=== PATIENT | male | born 1945 | race Caucasian/White ===

== ENCOUNTER 2022-07-08 15:31 | Emergency (ER) | payer MEDICARE, BC ==
[2022-07-08 15:59] VITALS: PULSE 60; RESP 18; TEMP 97.9
--- NOTE | 2022-07-08 16:54 | ED ---
General Adult HPI - General Chief complaint: Recheck/Abnormal Lab/Rx Stated complaint: post op infection Time Seen by Provider: 07/08/22 16:04 Source: patient, EMS, RN notes reviewed Mode of arrival: EMS Limitations: no limitations - History of Present Illness Initial comments: 76 year old male presents to the emergency department with a chief complaint of post op problem. [facility] who reports that there was purulent discharge "picking" at his incision site. Upon obtaining the history patient is only complaining of the c-collar being uncomfortable. He denies any other complaints. He denies any headache, fever, chills, chest pain, shortness of breath, abdominal pain, nausea, vomiting, diarrhea. Patient is a poor historian however has no specific complaints at this visit. - Related Data Previous Rx's Medication Instructions Recorded Cephalexin [Keflex] 500 mg PO Q6HR 14 Days #56 cap 07/08/22 Allergies Allergy/AdvReac Type Severity Reaction Status Date / Time cyclobenzaprine Allergy Unknown Verified 07/09/22 14:33 [From Flexeril] Review of Systems ROS Statement: Those systems with pertinent positive or pertinent negative responses have been documented in the HPI. ROS Other: All systems not noted in ROS Statement are negative. General Exam Limitations: no limitations General appearance: alert, in no apparent distress Head exam: Present: atraumatic, normocephalic, normal inspection Eye exam: Present: normal appearance, PERRL, EOMI. Absent: scleral icterus, conjunctival injection, periorbital swelling ENT exam: Present: normal exam, mucous membranes moist Neck exam: Present: normal inspection, other (Surgical site appears well-healed no active drainage there is no fluctuance). Absent: tenderness, meningismus, lymphadenopathy Respiratory exam: Present: normal lung sounds bilaterally. Absent: respiratory distress, wheezes, rales, rhonchi, stridor Cardiovascular Exam: Present: regular rate, normal rhythm, normal heart sounds. Absent: systolic murmur, diastolic murmur, rubs, gallop, clicks GI/Abdominal exam: Present: soft, normal bowel sounds. Absent: distended, tenderness, guarding, rebound, rigid Extremities exam: Present: normal inspection, full ROM, normal capillary refill. Absent: tenderness, pedal edema, joint swelling, calf tenderness Back exam: Present: normal inspection Neurological exam: Present: alert, oriented X3, CN II-XII intact Psychiatric exam: Present: normal affect, normal mood Skin exam: Present: warm, dry, intact, normal color. Absent: rash Course Vital Signs 07/08/22 07/08/22 15:56 17:59 Temperature 97.9 F Pulse Rate 60 60 Respiratory 18 18 Rate Blood Pressure 127/57 130/66 O2 Sat by Pulse 95 97 Oximetry - Reevaluation(s) Reevaluation #1: 07/08/22 17:[address] Larsen, who would like the patient to be placed on Keflex 500mg QID x 14 days and is stable to return to rehabilitation facility. He will follow up with the patient in his office next week. Medical Decision Making - Medical Decision Making Was pt. sent in by a medical professional or institution (, PA, AMUSEMENT OR RECREATION CARD CHECKER, urgent care, hospital, or prison...) When possible be specific @ -[No] Did you speak to anyone other than the patient for history (EMS, parent, family, police, friend...)? What history was obtained from this source @ -[No] Did you review nursing and triage notes (agree or disagree)? Why? @ -[I reviewed and agree with nursing and triage notes] Were old charts reviewed (outside hosp., previous admission, EMS record, old EKG, old radiological studies, urgent care reports/EKG's, prison records)? Report findings @ -[No old charts were reviewed] Differential Diagnosis (chest pain, altered mental status, abdominal pain women, abdominal pain men, vaginal bleeding, weakness, fever, dyspnea, syncope, headache, dizziness, GI bleed, back pain, seizure, CVA, palpatations, mental health)? @ -[not applicable] EKG interpreted by me (3pts min.). @ -[As above] X-rays interpreted by me (1pt min.). @ -[None done] CT interpreted by me (1pt min.). @ -[None done] U/S interpreted by me (1pt. min.). @ -[None done] What testing was considered but not performed or refused? (CT, X-rays, U/S, labs)? Why? @ -[None] What meds were considered but not given or refused? Why? @ -[None] Did you discuss the management of the patient with other professionals (professionals i.e. Dr., PA, AMUSEMENT OR RECREATION CARD CHECKER, lab, RT, psych nurse, licensed social worker, tire trimmer hand, teacher, juvenile officer, case management director)? Give summary @ -[No] Was smoking cessation discussed for >3mins.? @ -[No] Was critical care preformed (if so, how long)? @ -[No] Were there social determinants of health that impacted care today? How? (Homelessness, low income, unemployed, alcoholism, drug addiction, transportation, low edu. Level, literacy, decrease access to med. care, penitentiary, rehab)? @ -[No] Was there de-escalation of care discussed even if they declined (Discuss DNR or withdrawal of care, Hospice)? DNR status @ -[No] What co-morbidities impacted this encounter? (DM, HTN, Smoking, COPD, CAD, Cancer, CVA, ARF, Chemo, Hep., AIDS, mental health diagnosis, sleep apnea, morbid obesity)? @ -[None] Was patient admitted / discharged? Hospital course, mention meds given and route, prescriptions, significant lab abnormalities, going to OR and other pertinent info. @ -76-year-old male presents emergency Department with a post op checkup. Physical exam is essentially unremarkable, his incision site appears well-healed is no evidence of infection. The patient remains afebrile with vital signs stable on the emergency department. He was discharged in stable condition. I discussed the case with Dr. Bedoya who requested the patient get Keflex and be discharged back to his nursing care facility. He will have a scheduled follow-up and an appointment with Dr. Larsen some point next week. I discussed the results with the patient the patient is agreeable to plan for discharge. Patient was discharged in stable condition. I discussed the case with BROCK Gage who agrees with the plan of care. Undiagnosed new problem with uncertain prognosis? @ -[No] Drug Therapy requiring intensive monitoring for toxicity (Heparin, Nitro, Insulin, Cardizem)? @ -[No] Were any procedures done? @ -[No] Diagnosis/symptom? @ -Post-op check up Acute, or Chronic, or Acute on Chronic? @ -acute Uncomplicated (without systemic symptoms) or Complicated (systemic symptoms)? @ -uncomplicated Side effects of treatment? @ -[No] Exacerbation, Progression, or Severe Exacerbation? @ -[No] Poses a threat to life or bodily function? How? (Chest pain, [place], [place], pneumonia, PE, COPD, DKA, ARF, appy, cholecystitis, CVA, Diverticulitis, Homicidal, Suicidal, threat to staff... and all critical care pts) @ -[No] Disposition Clinical Impression: Postop check Disposition: DC/TRNS INTERMEDIATE CARE FAC Condition: Stable Additional Instructions: Please return to the nearest emergency department if fever, erythema, edema, or worsening discharge develops. Prescriptions: Cephalexin [Keflex] 500 mg PO Q6HR 14 Days #56 cap Is patient prescribed a controlled substance at d/c from ED?: No Referrals: Alistair Nice DO [Primary Care Provider] - 1-2 days Artem Larsen DO [REFERRING] - 1-2 days Time of Disposition: 17:07 - Out of Hospital Transfer - Req. Specs Out of Hospital Transfer - Requested Specifics: Other Non-Acute ([facility])
[2022-07-08 18:16] VITALS: BP 130/66
== END 2022-07-08 18:28 ==
LOC: EC 15:31
DX: T81.89XA Other complications of procedures, not elsewhere classified, initial encounter (principal); Z88.8 Allergy status to other drugs, medicaments and biological substances
CPT/HCPCS: 99283

== ENCOUNTER 2022-07-09 13:59 | Emergency (ER) | payer MEDICARE, BC ==
[2022-07-09 14:35] VITALS: RESP 18; TEMP 98
--- NOTE | 2022-07-09 16:25 | ED ---
Fall HPI - General Chief Complaint: Fall Stated Complaint: FALL Time Seen by Provider: 07/09/22 14:01 Source: patient, EMS Mode of arrival: EMS - History of Present Illness Initial Comments: 76-year-old male patient presents to the emergency department via EMS from rehab facility after experiencing a fall. Patient states that he was getting up out of bed, was confused for a moment about where he was and tried to walk to the nightstand. Patient has chronic leg weakness and numbness and usually uses a wheelchair. States he had a fall. Denies hitting his head or losing conscio usness. Denies any increased neck pain. Did have recent cervical spine surgery. Family called and is concerned requesting a CT scan. Patient denies any injuries or complaints other than some discomfort to a chronic wound on his buttocks. Patient denies any headache, neck pain, back pain, chest pain, shortness of breath, dizziness, weakness, abdominal pain, nausea, vomiting, or difficulties with bowel movements or urination. - Related Data Previous Rx's Medication Instructions Recorded Cephalexin [Keflex] 500 mg PO Q6HR 14 Days #56 cap 07/08/22 Allergies Allergy/AdvReac Type Severity Reaction Status Date / Time cyclobenzaprine Allergy Unknown Verified 07/09/22 14:33 [From Flexeril] Review of Systems ROS Statement: Those systems with pertinent positive or pertinent negative responses have been documented in the HPI. ROS Other: All systems not noted in ROS Statement are negative. Past Medical History Past Medical History: Atrial Fibrillation, Diabetes Mellitus, Hyperlipidemia, Hypertension, Neurologic Disorder, Thyroid Disorder Additional Past Medical History / Comment(s): Myasthenia gravis. Past Surgical History: Back Surgery General Exam Limitations: physical limitation General appearance: alert, in no apparent distress, other (This is a well- developed, well-nourished adult male in no acute distress.) Head exam: Present: atraumatic, normocephalic, normal inspection Eye exam: Present: normal appearance, PERRL, EOMI. Absent: scleral icterus, conjunctival injection, nystagmus, periorbital swelling ENT exam: Present: normal exam, normal oropharynx, mucous membranes moist Neck exam: Present: normal inspection, full ROM. Absent: tenderness, meningismus, lymphadenopathy Respiratory exam: Present: normal lung sounds bilaterally. Absent: respiratory distress, wheezes, rales, rhonchi, stridor Cardiovascular Exam: Present: regular rate, normal rhythm, normal heart sounds. Absent: systolic murmur, diastolic murmur, rubs, gallop, clicks GI/Abdominal exam: Present: soft, normal bowel sounds. Absent: distended, tenderness, guarding, rebound, rigid Extremities exam: Present: normal inspection, normal capillary refill. Absent: tenderness, pedal edema, joint swelling, calf tenderness Neurological exam: Present: alert, oriented X3, CN II-XII intact Psychiatric exam: Present: normal affect, normal mood Skin exam: Present: warm, dry, intact, normal color. Absent: rash Course Vital Signs 07/09/22 07/09/22 14:25 16:47 Temperature 98.0 F Pulse Rate 63 72 Respiratory 18 18 Rate Blood Pressure 125/58 118/62 O2 Sat by Pulse 98 95 Oximetry Medical Decision Making - Medical Decision Making Was pt. sent in by a medical professional or institution (, PA, EMPLOYEE HEALTH NURSE, urgent care, hospital, or retirement...) When possible be specific @ -[No] Did you speak to anyone other than the patient for history (EMS, parent, family, police, friend...)? What history was obtained from this source @ -[EMS] Did you review nursing and triage notes (agree or disagree)? Why? @ -[I reviewed and agree with nursing and triage notes] Were old charts reviewed (outside hosp., previous admission, EMS record, old EKG, old radiological studies, urgent care reports/EKG's, retirement records)? Report findings @ -[Emergency department visit from yesterday 07/08/2022] Differential Diagnosis (chest pain, altered mental status, abdominal pain women, abdominal pain men, vaginal bleeding, weakness, fever, dyspnea, syncope, headache, dizziness, GI bleed, back pain, seizure, CVA, palpatations, mental health)? @ -[not applicable] EKG interpreted by me (3pts min.). @ -[As above] X-rays interpreted by me (1pt min.). @ -[None done] CT interpreted by me (1pt min.). @ -[As above] U/S interpreted by me (1pt. min.). @ -[None done] What testing was considered but not performed or refused? (CT, X-rays, U/S, labs)? Why? @ -[None] What meds were considered but not given or refused? Why? @ -[None] Did you discuss the management of the patient with other professionals (professionals i.e. , PA, EMPLOYEE HEALTH NURSE, lab, RT, psych nurse, social work faculty member, aircraft sheet metal mechanic, teacher, coastal/harbor defense officer, disease case manager)? Give summary @ -[My attending Dr. Carter] Was smoking cessation discussed for >3mins.? @ -[No] Was critical care preformed (if so, how long)? @ -[No] Were there social determinants of health that impacted care today? How? (Homelessness, low income, unemployed, alcoholism, drug addiction, transportation, low edu. Level, literacy, decrease access to med. care, retirement, rehab)? @ -[No] Was there de-escalation of care discussed even if they declined (Discuss DNR or withdrawal of care, Hospice)? DNR status @ -[No] What co-morbidities impacted this encounter? (DM, HTN, Smoking, COPD, CAD, Cancer, CVA, ARF, Chemo, Hep., AIDS, mental health diagnosis, sleep apnea, morbid obesity)? @ -[Degenerative disc disease, lower extremity weakness chronic] Was patient admitted / discharged? Hospital course, mention meds given and route, prescriptions, significant lab abnormalities, going to OR and other pertinent info. @ -76 old male presented to the emergency department from [facility] for evaluation after a fall. Physical examination is unremarkable. He is neurologically intact with no focal deficits. Did have recent surgery to the C-spine. Family requested computed tomography scan. I did perform computed tomography scan of the brain and C-spine which did show probable chronic compression fractures and recent surgical changes, no intracranial abnormality. Upon reevaluation patient is resting comfortably in bed. Did discuss results with him here to be discharged back to the rehab facility. Return parameters were discussed in detail. He verbalizes understanding and agrees with this plan. Undiagnosed new problem with uncertain prognosis? @ -[No] Drug Therapy requiring intensive monitoring for toxicity (Heparin, Nitro, Insulin, Cardizem)? @ -[No] Were any procedures done? @ -[No] Diagnosis/symptom? @ -Fall Acute, or Chronic, or Acute on Chronic? @ -Acute Uncomplicated (without systemic symptoms) or Complicated (systemic symptoms)? @ -[default] Side effects of treatment? @ -[No] Exacerbation, Progression, or Severe Exacerbation? @ -[No] Poses a threat to life or bodily function? How? (Chest pain, [place], [place], pneumonia, PE, COPD, DKA, ARF, appy, cholecystitis, CVA, Diverticulitis, Homicidal, Suicidal, threat to staff... and all critical care pts) @ -[No] - Radiology Data Radiology results: report reviewed, image reviewed T brain C-spine without contrast was obtained. Report was reviewed in its entirety. Impression by Dr. Hussein shows mild cerebral atrophy. No acute intracranial abnormality. Recent cervical spine posterior fusion surgery. Spondylotic changes. Mild compression fractures of C6 and 7 are likely not acute. Recommend comparison with old exams. Disposition Clinical Impression: Fall Disposition: HOME SELF-CARE Condition: Good Instructions (If sedation given, give patient instructions): Fall Prevention for Older Adults (ED) Additional Instructions: Follow-up with the primary care physician for recheck in 1-2 days. Return for a ny new, worsening, or concerning symptoms. Is patient prescribed a controlled substance at d/c from ED?: No Referrals: Alistair Ncie DO [Primary Care Provider] - 1-2 days Time of Disposition: 16:38
--- NOTE | 2022-07-09 16:29 | CT ---
EXAMINATION TYPE: CT brain cspine wo con DATE OF EXAM: 07/09/2022 COMPARISON: None HISTORY: Fall; recent neck surgery CT DLP: 1510.4 mGycm Automated exposure control for dose reduction was used. Images obtained of the brain and cervical spine without contrast. There is some cerebral cortical atrophy. There is no mass effect or midline shift. No sign of intracr anial hemorrhage. Calvarium is intact. There is normal aeration of the mastoid sinuses. Skull base is intact. The cervical vertebra show mild straightening. There is carmelita and screws fusing p osteriorly the cervical spine from level of C4-C7. There is soft tissue air consistent with recent saleh rgery. There is multilevel laminectomy defect no cervical spine acute fractures seen. There is multil evel cervical facet arthropathy. There is some biconcave deformity of the C6 and C7 vertebral bodies that is likely chronic. IMPRESSION: Mild cerebral atrophy. No acute intracranial abnormality. Recent cervical spine posterior fusion surgery. Spondylotic changes. Mild compression fractures at C6 and C7 are likely not acute. Recommend comparison with old exams.
[2022-07-09 18:47] VITALS: BP 146/72; PULSE 68
== END 2022-07-09 18:53 | disposition home or self-care (01) ==
LOC: EC 13:59
DX: M79.606 Pain in leg, unspecified (principal); I10 Essential (primary) hypertension; I48.91 Unspecified atrial fibrillation; E11.9 Type 2 diabetes mellitus without complications; Z88.8 Allergy status to other drugs, medicaments and biological substances; W06.XXXA Fall from bed, initial encounter
CPT/HCPCS: 70450; 72125; 99285

== ENCOUNTER 2023-06-14 12:52 | Inpatient (IN) | payer MEDICARE, BC ==
[2023-06-14] MEDS ORDERED: SODIUM CHLORIDE 0.9% 1,000 ML IV STA (13:51)
--- NOTE | 2023-06-14 13:55 | ED ---
General Adult HPI - General Source: patient, family, RN notes reviewed Mode of arrival: ambulatory Limitations: no limitations <Nadira Bertrand - Last Filed: 06/14/23 15:09> - History of Present Illness -: days(s) Location: chest Radiation: non-radiation Quality: aching, sharp Consistency: constant, intermittent Improves with: none Worsens with: none Associated Symptoms: chest pain, shortness of breath Treatments Prior to Arrival: none <Mehrdad Noel - Last Filed: 06/24/23 19:30> - General Chief complaint: Upper Respiratory Infection Stated complaint: V/N, Chest Discomfort Time Seen by Provider: 06/14/23 13:31 - History of Present Illness Initial comments: Patient is 77-year-old male presenting to the ER with chief complaint of weakness. Patient has a past medical history significant for myasthenia gravis and atrial fibrillation. Patient states for the past week or so he's been feeling extremely weak. And he has been having difficulty getting out of his wheelchair to transfer to his recliner which is abnormal for him. Patient does report for about a week he's been having this left-sided chest pressure. Patient denies shortness of breath. Patient states last night he started having nausea and vomiting. Patient denies any bright red blood per vomiting. Patient denies any abdominal pain. Patient states that he has been going to the bathroom more frequently than normal. Patient lives in a assisted living facility where other residents have been ill. (Nadira Bertrand) This 77-year-old male to the emergency department today for evaluation of weakness shortness of breath chest pain at times. Chest pain with cough left- sided chest pain that is stiffly worse when he starts coughing with nausea and vomiting. Patient has occasionally shortness of breath and shortness of breath especially with exertion with underlying history of myasthenia gravis (Mehrdad Noel) - Related Data Home Medications Medication Instructions Recorded Confirmed Apixaban [Eliquis] 5 mg PO BID 06/14/23 06/14/23 Cholecalciferol [Vitamin D3 (25 25 mcg PO DAILY 06/14/23 06/14/23 Mcg = 1000 Iu)] DULoxetine HCL [Cymbalta] 60 mg PO DAILY 06/14/23 06/14/23 Glimepiride [Amaryl] 2 mg PO [id number] 06/14/23 06/14/23 Ketorolac 0.5% Ophth Soln [Acular 1 drop LEFT EYE BID 06/14/23 06/14/23 0.5%] Levothyroxine Sodium [Synthroid] 137 mcg PO DAILY 06/14/23 06/14/23 Losartan [Cozaar] 25 mg PO DAILY 06/14/23 06/14/23 Metoprolol Tartrate [Lopressor] 50 mg PO BID 06/14/23 06/14/23 Rosuvastatin [Crestor] 20 mg PO HS 06/14/23 06/14/23 amLODIPine [Norvasc] 5 mg PO DAILY 06/14/23 06/14/23 azaTHIOprine [Imuran] 100 mg PO DAILY 06/14/23 06/14/23 metFORMIN HCL 500 mg PO BID 06/14/23 06/14/23 prednisoLONE ACETATE 1% OPHTH 1 drop LEFT EYE BID 06/14/23 06/14/23 [Pred Forte 1%] Previous Rx's Medication Instructions Recorded Aspirin 81 mg PO DAILY #30 tab 06/16/23 Allergies Allergy/AdvReac Type Severity Reaction Status Date / Time cyclobenzaprine Allergy Unknown Verified 06/14/23 15:40 [From Flexeril] Review of Systems ROS Other: All systems not noted in ROS Statement are negative. <Nadira Bertrand - Last Filed: 06/14/23 15:09> ROS Other: All systems not noted in ROS Statement are negative. <Mehrdad Noel - Last Filed: 06/24/23 19:30> ROS Statement: Those systems with pertinent positive or pertinent negative responses have been documented in the HPI. Past Medical History Past Medical History: Atrial Fibrillation, Diabetes Mellitus, Hyperlipidemia, Hypertension, Neurologic Disorder, Thyroid Disorder Additional Past Medical History / Comment(s): Myasthenia gravis. History of Any Multi-Drug Resistant Organisms: None Reported Past Surgical History: Back Surgery Past Psychological History: No Psychological Hx Reported Smoking Status: Never smoker Past Alcohol Use History: None Reported Past Drug Use History: None Reported <Nadira Bertrand - Last Filed: 06/14/23 15:09> - Past Family History Father Family Medical History: Hypertension <Mehrdad Noel - Last Filed: 06/24/23 19:30> General Exam Limitations: no limitations General appearance: alert, in no apparent distress Head exam: Present: atraumatic, normocephalic, normal inspection Eye exam: Present: normal appearance, PERRL, EOMI. Absent: scleral icterus, conjunctival injection, periorbital swelling ENT exam: Present: normal exam, normal oropharynx, mucous membranes dry, TM's normal bilaterally, normal external ear exam Neck exam: Present: normal inspection. Absent: tenderness, meningismus, lymphadenopathy Respiratory exam: Present: normal lung sounds bilaterally. Absent: respiratory distress, wheezes, rales, rhonchi, stridor Cardiovascular Exam: Present: regular rate, normal rhythm, normal heart sounds. Absent: systolic murmur, diastolic murmur, rubs, gallop, clicks GI/Abdominal exam: Present: soft, normal bowel sounds. Absent: distended, tenderness, guarding, rebound, rigid Neurological exam: Present: alert, oriented X3, CN II-XII intact Psychiatric exam: Present: normal affect, normal mood Skin exam: Present: warm, dry, intact, normal color. Absent: rash <HerbertihaNadira - Last Filed: 06/14/23 15:09> General appearance: alert, in no apparent distress, anxious Head exam: Present: atraumatic, normocephalic, normal inspection Eye exam: Present: normal appearance, PERRL, EOMI. Absent: scleral icterus, conjunctival injection, periorbital swelling ENT exam: Present: normal exam, mucous membranes moist Neck exam: Present: normal inspection. Absent: tenderness, meningismus, lymphadenopathy Respiratory exam: Present: normal lung sounds bilaterally. Absent: respiratory distress, wheezes, rales, rhonchi, stridor Cardiovascular Exam: Present: regular rate, normal rhythm, normal heart sounds. Absent: systolic murmur, diastolic murmur, rubs, gallop, clicks GI/Abdominal exam: Present: soft, normal bowel sounds. Absent: distended, tenderness, guarding, rebound, rigid Extremities exam: Present: normal inspection, full ROM, normal capillary refill. Absent: tenderness, pedal edema, joint swelling, calf tenderness Back exam: Present: normal inspection Neurological exam: Present: alert, oriented X3, CN II-XII intact Psychiatric exam: Present: normal affect, normal mood Skin exam: Present: warm, dry, intact, normal color. Absent: rash <Mehrdad Noel - Last Filed: 06/24/23 19:30> Course <Mehrdad Noel - Last Filed: 06/24/23 19:30> Vital Signs 06/14/23 06/14/23 06/14/23 13:18 14:15 15:00 Temperature 98.3 F Pulse Rate 62 67 Respiratory 18 18 18 Rate Blood Pressure 148/82 168/77 O2 Sat by Pulse 95 97 Oximetry 06/14/23 06/14/23 06/14/23 17:49 18:52 20:10 Temperature Pulse Rate 61 64 68 Respiratory 18 18 18 Rate Blood Pressure 173/8 175/115 143/83 O2 Sat by Pulse 96 95 96 Oximetry 06/14/23 06/15/23 06/15/23 23:00 00:25 01:30 Temperature Pulse Rate 81 55 L 68 Respiratory 16 18 23 Rate Blood Pressure 165/81 188/86 194/90 O2 Sat by Pulse 95 95 94 L Oximetry 06/15/23 06/15/23 06/15/23 02:30 04:30 06:29 Temperature 97.8 F Pulse Rate 65 65 68 Respiratory 19 14 20 Rate Blood Pressure 184/83 175/82 184/83 O2 Sat by Pulse 96 97 96 Oximetry 06/15/23 06/15/23 06/15/23 08:00 13:34 17:43 Temperature Pulse Rate 60 50 L 69 Respiratory 18 16 18 Rate Blood Pressure 160/84 148/59 173/74 O2 Sat by Pulse 98 98 95 Oximetry 06/15/23 18:43 Temperature 97.7 F Pulse Rate 65 Respiratory 18 Rate Blood Pressure 139/71 O2 Sat by Pulse 96 Oximetry - Reevaluation(s) Reevaluation #1: 06/14/23 Medical records reviewed (Mehrdad Noel) Reevaluation #2: 06/14/23 Patient symptoms are unchanged still with chest pain or shortness of breath (Mehrdad Noel) Reevaluation #3: 06/14/23 Patient informed results and questions answered (Mehrdad Noel) Reevaluation #4: 06/14/23 21:09 Was pt. sent in by a medical professional or institution (Dr., PA, SKI PATROL DIRECTOR, urgent care, hospital, or group home...) When possible be specific @ -no Did you speak to anyone other than the patient for history (EMS, parent, family, police, friend...)? What history was obtained from this source @ -no Did you review nursing and triage notes (agree or disagree)? Why? @ -agree Are old charts reviewed (outside hosp., previous admission, EMS record, old EKG, old radiological studies, urgent care reports/EKG's, group home records)? Report findings @ -yes Differential Diagnosis (chest pain, altered mental status, abdominal pain women, abdominal pain men, vaginal bleeding, weakness, fever, dyspnea, syncope, headache, dizziness, GI bleed, back pain, seizure, CVA, palpatations, mental health, musculoskeletal)? @ -prior EKG interpreted by me (3pts min.). @ -yes X-rays interpreted by me (1pt min.). @ -yes negative for acute disease CT interpreted by me (1pt min.). @ -no U/S interpreted by me (1pt. min.). @ -no What testing was considered but not performed or refused? (CT, X-rays, U/S, labs)? Why? @ -none What meds were considered but not given or refused? Why? @ -none Did you discuss the management of the patient with other professionals (professionals i.e. NESS Renner, SKI PATROL DIRECTOR, lab, RT, psych nurse, administrator social welfare, quantitative analyst developer, teacher, corporate banking officer, family independence case manager)? Give summary @ -no Was smoking cessation discussed for >3mins.? @ -no Was critical care preformed (if so, how long)? @ -yes31 Were there social determinants of health that impacted care today? How? (Homelessness, low income, unemployed, alcoholism, drug addiction, transportation, low edu. Level, literacy, decrease access to med. care, senior living, rehab)? @ -none Was there de-escalation of care discussed even if they declined (Discuss DNR or withdrawal of care, Hospice)? DNR status @ -no What co-morbidities impacted this encounter? (DM, HTN, Smoking, COPD, CAD, Cancer, CVA, ARF, Chemo, Hep., AIDS, mental health diagnosis, sleep apnea, morbid obesity)? @ -none Was patient admitted / discharged? Hospital course, mention meds given and route, prescriptions, significant lab abnormalities, going to OR and other pertinent info. @ - 77 male admitted for weakness and coronavirus, elevated troponin, non-ST elevated MT Admitted Undiagnosed new problem with uncertain prognosis? @ -no Drug Therapy requiring intensive monitoring for toxicity (Heparin, Nitro, Insulin, Cardizem)? @ -no Were any procedures done? @ -no Diagnosis/symptom? @ -Coronavirus, elevated troponin non-ST elevated MT Acute, or Chronic, or Acute on Chronic? @ -Acute Uncomplicated (without systemic symptoms) or Complicated (systemic symptoms)? @ -Complicated Side effects of treatment? @ -no Exacerbation, Progression, or Severe Exacerbation? @ -exacerbation Poses a threat to life or bodily function? How? (Chest pain, USA, MT, pneumonia, PE, COPD, DKA, ARF, appy, cholecystitis, CVA, Diverticulitis, Homicidal, Suicidal, threat to staff... and all critical care pts) @ -yes elevated troponin (Mehrdad Noel) Reevaluation #5: Differential Chest Pain: Stable Angina, Unstable Angina, STEMI, NSTEMI Aortic Dissection, Pneumothorax, Musculoskeletal, Esophageal Spasm GERD, Cholecystitis, Pancreatitis, Zoster, this is not meant to be an all-inclusive list. Differential Dyspnea: Coronary syndrome, arrhythmia, tamponade, asthma, COPD, pulmonary embolism, pneumonia, pneumothorax, pulmonary effusion, anaphylaxis, diabetic ketoacidosis, flailed chest, pulmonary contusion, diaphragmatic rupture, anemia, neuromuscular, this is not meant to be an all-inclusive list. (Mehrdad Noel) - Consultations Consultation #1: Spoke with sound who agrees to admit this patient (Mehrdad Noel) EKG Findings - EKG Comments: EKG Findings:: EKG is sinus 58 WV QRS 150 QTC 447 - EKG Results: EKG: interpreted by ERMD <Mehrdad Noel - Last Filed: 06/24/23 19:30> Medical Decision Making - Lab Data Result diagrams: 06/14/23 13:32 06/14/23 13:32 - EKG Data -: EKG Interpreted by Me <Nadira Bertrand - Last Filed: 06/14/23 15:09> - Lab Data Result diagrams: 06/15/23 05:39 06/14/23 13:32 - EKG Data -: EKG Interpreted by Nc - Radiology Data Radiology results: report reviewed (Chest x-rays negative for acute disease), image reviewed <Mehrdad Noel - Last Filed: 06/24/23 19:30> - Medical Decision Making 77 male admitted for weakness and coronavirus, elevated troponin, non-ST elevated MT (Mehrdad Noel) - Lab Data Lab Results 06/14/23 06/14/23 06/14/23 Range/Units 13:32 13:32 13:32 WBC 3.3 L (3.8-10.6) k/uL RBC 4.36 (4.30-5.90) m/uL Hgb 14.3 (13.0-17.5) gm/dL Hct 41.7 (39.0-53.0) % MCV 95.7 (80.0-100.0) fL MCH 32.7 (25.0-35.0) pg MCHC 34.2 (31.0-37.0) g/dL RDW 13.8 (11.5-15.5) % Plt Count 111 L (150-450) k/uL MPV 9.9 Neutrophils % 79 % Lymphocytes % 5 % Monocytes % 11 % Eosinophils % 1 % Basophils % 0 % Neutrophils # 2.6 (1.3-7.7) k/uL Lymphocytes # 0.2 L (1.0-4.8) k/uL Monocytes # 0.4 (0-1.0) k/uL Eosinophils # 0.0 (0-0.7) k/uL Basophils # 0.0 (0-0.2) k/uL PT 10.9 (10.0-12.5) sec INR 1.0 (<1.2) APTT 29.1 (22.0-30.0) sec Sodium 136 L (137-145) mmol/L Potassium 4.9 (3.5-5.1) mmol/L Chloride 101 (98-107) mmol/L Carbon Dioxide 23 (22-30) mmol/L Anion Gap 12 mmol/L BUN 23 H (9-20) mg/dL Creatinine 1.17 (0.66-1.25) mg/dL Est GFR (CKD-EPI)AfAm 69 (>60 ml/min/1.73 sqM) Est GFR (CKD-EPI)NonAf 60 (>60 ml/min/1.73 sqM) Glucose 123 H (74-99) mg/dL Plasma Lactic Acid Bong (0.7-2.0) mmol/L Calcium 8.8 (8.4-10.2) mg/dL Phosphorus 3.6 (2.5-4.5) mg/dL Magnesium 1.6 (1.6-2.3) mg/dL Total Bilirubin 1.0 (0.2-1.3) mg/dL AST 67 H (17-59) U/L ALT 35 (4-49) U/L Alkaline Phosphatase 92 (38-126) U/L Troponin I (0.000-0.034) ng/mL Total Protein 6.8 (6.3-8.2) g/dL Albumin 4.1 (3.5-5.0) g/dL TSH 1.540 (0.465-4.680) mIU/L Urine Color Urine Appearance (Clear) Urine pH (5.0-8.0) Ur Specific [place] (1.001-1.035) Urine Protein (Negative) Urine Glucose (UA) (Negative) Urine Ketones (Negative) Urine Blood (Negative) Urine Nitrite (Negative) Urine Bilirubin (Negative) Urine Urobilinogen (<2.0) mg/dL Ur Leukocyte Esterase (Negative) Urine RBC (0-5) /hpf Urine WBC (0-5) /hpf Urine Mucus (None) /hpf Influenza Type A (PCR) (Not Detectd) Influenza Type B (PCR) (Not Detectd) RSV (PCR) (Not Detectd) SARS-CoV-2 (PCR) (Not Detectd) 06/14/23 06/14/23 06/14/23 Range/Units 13:32 13:32 14:08 WBC (3.8-10.6) k/uL RBC (4.30-5.90) m/uL Hgb (13.0-17.5) gm/dL Hct (39.0-53.0) % MCV (80.0-100.0) fL MCH (25.0-35.0) pg MCHC (31.0-37.0) g/dL RDW (11.5-15.5) % Plt Count (150-450) k/uL MPV Neutrophils % % Lymphocytes % % Monocytes % % Eosinophils % % Basophils % % Neutrophils # (1.3-7.7) k/uL Lymphocytes # (1.0-4.8) k/uL Monocytes # (0-1.0) k/uL Eosinophils # (0-0.7) k/uL Basophils # (0-0.2) k/uL PT (10.0-12.5) sec INR (<1.2) APTT (22.0-30.0) sec Sodium (137-145) mmol/L Potassium (3.5-5.1) mmol/L Chloride (98-107) mmol/L Carbon Dioxide (22-30) mmol/L Anion Gap mmol/L BUN (9-20) mg/dL Creatinine (0.66-1.25) mg/dL Est GFR (CKD-EPI)AfAm (>60 ml/min/1.73 sqM) Est GFR (CKD-EPI)NonAf (>60 ml/min/1.73 sqM) Glucose (74-99) mg/dL Plasma Lactic Acid Bong 1.0 (0.7-2.0) mmol/L Calcium (8.4-10.2) mg/dL Phosphorus (2.5-4.5) mg/dL Magnesium (1.6-2.3) mg/dL Total Bilirubin (0.2-1.3) mg/dL AST (17-59) U/L ALT (4-49) U/L Alkaline Phosphatase (38-126) U/L Troponin I 0.081 H* (0.000-0.034) ng/mL Total Protein (6.3-8.2) g/dL Albumin (3.5-5.0) g/dL TSH (0.465-4.680) mIU/L Urine Color Yellow Urine Appearance Clear (Clear) Urine pH 6.0 (5.0-8.0) Ur Specific [place] 1.024 (1.001-1.035) Urine Protein 2+ H (Negative) Urine Glucose (UA) Negative (Negative) Urine Ketones Negative (Negative) Urine Blood Small H (Negative) Urine Nitrite Negative (Negative) Urine Bilirubin Negative (Negative) Urine Urobilinogen 2.0 (<2.0) mg/dL Ur Leukocyte Esterase Negative (Negative) Urine RBC 5 (0-5) /hpf Urine WBC 1 (0-5) /hpf Urine Mucus Rare H (None) /hpf Influenza Type A (PCR) (Not Detectd) Influenza Type B (PCR) (Not Detectd) RSV (PCR) (Not Detectd) SARS-CoV-2 (PCR) (Not Detectd) 06/14/23 Range/Units 15:50 WBC (3.8-10.6) k/uL RBC (4.30-5.90) m/uL Hgb (13.0-17.5) gm/dL Hct (39.0-53.0) % MCV (80.0-100.0) fL MCH (25.0-35.0) pg MCHC (31.0-37.0) g/dL RDW (11.5-15.5) % Plt Count (150-450) k/uL MPV Neutrophils % % Lymphocytes % % Monocytes % % Eosinophils % % Basophils % % Neutrophils # (1.3-7.7) k/uL Lymphocytes # (1.0-4.8) k/uL Monocytes # (0-1.0) k/uL Eosinophils # (0-0.7) k/uL Basophils # (0-0.2) k/uL PT (10.0-12.5) sec INR (<1.2) APTT (22.0-30.0) sec Sodium (137-145) mmol/L Potassium (3.5-5.1) mmol/L Chloride (98-107) mmol/L Carbon Dioxide (22-30) mmol/L Anion Gap mmol/L BUN (9-20) mg/dL Creatinine (0.66-1.25) mg/dL Est GFR (CKD-EPI)AfAm (>60 ml/min/1.73 sqM) Est GFR (CKD-EPI)NonAf (>60 ml/min/1.73 sqM) Glucose (74-99) mg/dL Plasma Lactic Acid Bong (0.7-2.0) mmol/L Calcium (8.4-10.2) mg/dL Phosphorus (2.5-4.5) mg/dL Magnesium (1.6-2.3) mg/dL Total Bilirubin (0.2-1.3) mg/dL AST (17-59) U/L ALT (4-49) U/L Alkaline Phosphatase (38-126) U/L Troponin I (0.000-0.034) ng/mL Total Protein (6.3-8.2) g/dL Albumin (3.5-5.0) g/dL TSH (0.465-4.680) mIU/L Urine Color Urine Appearance (Clear) Urine pH (5.0-8.0) Ur Specific [place] (1.001-1.035) Urine Protein (Negative) Urine Glucose (UA) (Negative) Urine Ketones (Negative) Urine Blood (Negative) Urine Nitrite (Negative) Urine Bilirubin (Negative) Urine Urobilinogen (<2.0) mg/dL Ur Leukocyte Esterase (Negative) Urine RBC (0-5) /hpf Urine WBC (0-5) /hpf Urine Mucus (None) /hpf Influenza Type A (PCR) Not Detected (Not Detectd) Influenza Type B (PCR) Not Detected (Not Detectd) RSV (PCR) Not Detected (Not Detectd) SARS-CoV-2 (PCR) Detected A (Not Detectd) - EKG Data EKG Comments: EKG taken at 13:30 shows a normal sinus rhythm with left bundle-branch block. No acute ST segment or T-wave abnormalities. Ventricular rate 58, QRS duration 150, QT/QTC 449/447. (Nadira Bretrand) Critical Care Time Critical Care Time: Yes Total Critical Care Time: 31 <Mehrdad Noel - Last Filed: 06/24/23 19:30> Disposition <Nadira Bertrand - Last Filed: 06/14/23 15:09> Is patient prescribed a controlled substance at d/c from ED?: No Time of Disposition: 17:30 <Mehrdad Noel - Last Filed: 06/24/23 19:30> Clinical Impression: Chest pain, Weakness, NSTEMI (non-ST elevated myocardial infarction) Disposition: ADMITTED IP TO THIS HOSP Condition: Good
--- NOTE | 2023-06-14 14:33 | XR ---
EXAMINATION TYPE: XR chest 2V DATE OF EXAM: 06/14/2023 COMPARISON: NONE HISTORY: Shortness of breath TECHNIQUE: Frontal and lateral views of the chest are obtained. FINDINGS: Scattered senescent parenchymal changes noted. Hyperinflation compatible with COPD. No evidence for infiltrate. No evidence for atelectasis. Heart size is stable. Mediastinal structures are stable and grossly unremarkable. No evidence for hilar prominence. Degenerative changes dorsal spine. IMPRESSION: 1. No evidence for acute pulmonary disease.
[2023-06-14 14:39] LABS: Partial Thromboplastin Time 29.1 sec (22.0-30.0); Prothrombin Time 10.9 sec (10.0-12.5)
[2023-06-14 14:46] LABS: Basophils % (A) 0 %; Eosinophils % (A) 1 %; HCT 41.7 % (39.0-53.0); HGB 14.3 gm/dL (13.0-17.5); Lymphocytes # (A) 0.2 k/uL (1.0-4.8); Lymphocytes % (A) 5 %; MCH 32.7 pg (25.0-35.0); MCHC 34.2 g/dL (31.0-37.0); MCV 95.7 fL (80.0-100.0); Mean Platelet Volume 9.9; Monocytes # (A) 0.4 k/uL (0-1.0); Monocytes % (A) 11 %; Neutrophils # (A) 2.6 k/uL (1.3-7.7); Neutrophils % (A) 79 %; Platelet Count 111 k/uL (150-450); RBC 4.36 m/uL (4.30-5.90); RDW 13.8 % (11.5-15.5); WBC 3.3 k/uL (3.8-10.6)
[2023-06-14 14:52] LABS: ALT 35 U/L (4-49); African American GFR (CKD) 69 (>60 ml/min/1.73 sqM); Albumin 4.1 g/dL (3.5-5.0); Anion Gap 12 mmol/L; Blood Urea Nitrogen 23 mg/dL (9-20); Calcium 8.8 mg/dL (8.4-10.2); Carbon Dioxide 23 mmol/L (22-30); Chloride 101 mmol/L (98-107); Glucose 123 mg/dL (74-99); Magnesium 1.6 mg/dL (1.6-2.3); Non-African American GFR(CKD) 60 (>60 ml/min/1.73 sqM); Phosphorus 3.6 mg/dL (2.5-4.5); Sodium 136 mmol/L (137-145); Total Protein 6.8 g/dL (6.3-8.2)
[2023-06-14 14:53] LABS: AST 67 U/L (17-59); Potassium 4.9 mmol/L (3.5-5.1)
[2023-06-14 14:54] LABS: Alkaline Phosphatase 92 U/L (38-126)
[2023-06-14 15:29] LABS: Mucus,Urine Rare /hpf; RBC,Urine 5 /hpf (0-5); WBC,Urine 1 /hpf (0-5)
[2023-06-14] MEDS ORDERED: ASPIRIN 81 MG PO STA ×2 (15:31→17:25)
[2023-06-14 15:53] LABS: Appearance,Urine Clear (Clear); Bilirubin,Urine Negative (Negative); Blood,Urine Small (Negative); Color,Urine Yellow; Glucose,Urine (UA) Negative (Negative); Ketones,Urine Negative (Negative); Leukocyte Esterase,Urine Negative (Negative); Nitrite,Urine Negative (Negative); Protein,Urine 2+ (Negative); Specific Gravity,Urine 1.024 (1.001-1.035)
[2023-06-14] MEDS ORDERED: NITROGLYCERIN SL TABS 0.4 MG TAB SUBLINGUAL PRN (17:25)
[2023-06-14] MEDS ORDERED: MORPHINE SULFATE 4 MG/ML SYRINGE IV PRN (17:25)
[2023-06-14] MEDS ORDERED: METOPROLOL TARTRATE 25 MG TAB PO SCH (21:00)
[2023-06-14] MEDS ORDERED: ATORVASTATIN 80 MG TAB PO STA (21:47)
--- NOTE | 2023-06-14 21:49 | P.HPIM ---
History of Present Illness H&P Date: 06/14/23 Patient is a 77-year-old male resident of an assisted living facility with a PMH of myasthenia gravis chronically wheelchair-bound, A. fib on Eliquis, type II DM, hypertension, hypothyroidism, hyperlipidemia, who presents to the emergency room with complaints of chest discomfort, generalized weakness and cough. Patient reports he has been experiencing persistent cough over the past 1 week which is accompanied by a pleuritic left-sided chest discomfort. Does report occasional nausea with multiple episodes of vomiting over the past 1-2 days with difficulty relating most foods. Also reports generalized weakness which is new making it difficult for him to perform his ADLs such as transferring from his wheelchair to his recliner. He denies experiencing shortness of breath, fever, chills, abdominal pain, diarrhea. Chest x-ray in the emergency room was unremarkable. EKG revealed sinus rhythm at 58 bpm with a left bundle branch block and left axis deviation as reviewed by me. Laboratory evaluation in was remarkable for troponin 0081, COVID positive, unremarkable UA, WBC count 3.3, and platelet count 111. The patient's SpO2 in the emergency room was 97% on room air. ED documentation reviewed and case discussed with ED provider. Review of systems: Pertinent positives and negatives as discussed in HPI, a complete review of systems was performed and all other systems are negative. Physical examination: Vital signs reviewed General: non toxic, no distress, appears at stated age, normal weight Derm: no unusual rashes/lesions, warm Head: atraumatic, normocephalic, symmetric Eyes: EOMI, no lid lag, anicteric sclera, pupils equal round reactive to light ENT: Nose and ears atraumatic Neck: No cervical lymphadenopathy, trachea midline, supple Mouth: no lip lesion, mucus membranes moist Cardiovascular: S1S2 reg, no murmur, positive dorsalis pedis pulse bilateral, no edema Lungs: CTA bilateral, no rhonchi, no rales, no accessory muscle use Abdominal: soft, nontender to palpation, no guarding Ext: muscle strength 4 out of 5 in all 4 extremities grossly, no gross muscle atrophy, no contractures, Neuro: CN II-XI grossly intact, no gross focal neuro deficits Psych: Alert, oriented, appropriate affect Assessment: Elevated troponin, suspect type II PR in setting of COVID infection COVID-19 infection, patient not requiring supplemental oxygen at this time Leukopenia and thrombocytopenia, suspected due to ongoing infection Chronic conditions: myasthenia gravis, A. fib, hypertension, type II DM, hypothyroidism, hyperlipidemia Imaging: Chest x-ray in the emergency room was unremarkable. EKG revealed sinus rhythm at 58 bpm with a left bundle branch block and left axis deviation as reviewed by me. Data Review: Laboratory evaluation in was remarkable for troponin 0081, COVID positive, unremarkable UA, WBC count 3.3, and platelet count 111. The patient's SpO2 in the emergency room was 97% on room air. 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 History of Any Multi-Drug Resistant Organisms: None Reported Past Surgical History: Back Surgery Past Psychological History: No Psychological Hx Reported Smoking Status: Never smoker Past Alcohol Use History: None Reported Past Drug Use History: None Reported - Past Family History Father Family Medical History: Hypertension Medications and Allergies Home Medications Medication Instructions Recorded Confirmed Type Apixaban [Eliquis] 5 mg PO BID 06/14/23 06/14/23 History Cholecalciferol [Vitamin D3 (25 25 mcg PO DAILY 06/14/23 06/14/23 History Mcg = 1000 Iu)] DULoxetine HCL [Cymbalta] 60 mg PO DAILY 06/14/23 06/14/23 History Glimepiride [Amaryl] 2 mg PO AC-BRKFST 06/14/23 06/14/23 History Ketorolac 0.5% Ophth Soln [Acular 1 drop LEFT EYE BID 06/14/23 06/14/23 History 0.5%] Levothyroxine Sodium [Synthroid] 137 mcg PO DAILY 06/14/23 06/14/23 History Losartan [Cozaar] 25 mg PO DAILY 06/14/23 06/14/23 History Metoprolol Tartrate [Lopressor] 50 mg PO BID 06/14/23 06/14/23 History Rosuvastatin [Crestor] 20 mg PO HS 06/14/23 06/14/23 History amLODIPine [Norvasc] 5 mg PO DAILY 06/14/23 06/14/23 History azaTHIOprine [Imuran] 100 mg PO DAILY 06/14/23 06/14/23 History metFORMIN HCL 500 mg PO BID 06/14/23 06/14/23 History prednisoLONE ACETATE 1% OPHTH 1 drop LEFT EYE BID 06/14/23 06/14/23 History [Pred Forte 1%] Allergies Allergy/AdvReac Type Severity Reaction Status Date / Time cyclobenzaprine Allergy Unknown Verified 06/14/23 15:40 [From Flexeril] Physical Exam Vitals: Vital Signs Temp Pulse Resp BP Pulse Ox 06/14/23 20:10 68 18 143/83 96 06/14/23 18:52 64 18 175/115 95 06/14/23 17:49 61 18 173/8 96 06/14/23 15:00 67 18 168/77 97 06/14/23 14:15 18 06/14/23 13:18 98.3 F 62 18 148/82 95 Intake and Output 06/14/23 06/14/23 06/14/23 06:59 14:59 22:59 Other: Weight 97.522 kg Results CBC & Chem 7: 06/14/23 13:32 06/14/23 13:32 Labs: Abnormal Lab Results - Last 24 Hours (Table) 06/14/23 06/14/23 06/14/23 Range/Units 13:32 13:32 13:32 WBC 3.3 L (3.8-10.6) k/uL Plt Count 111 L (150-450) k/uL Lymphocytes # 0.2 L (1.0-4.8) k/uL Sodium 136 L (137-145) mmol/L BUN 23 H (9-20) mg/dL Glucose 123 H (74-99) mg/dL AST 67 H (17-59) U/L Troponin I 0.081 H* (0.000-0.034) ng/mL Urine Protein (Negative) Urine Blood (Negative) Urine Mucus (None) /hpf SARS-CoV-2 (PCR) (Not Detectd) 12/20/23 12/20/23 12/20/23 Range/Units 14:08 15:50 17:45 WBC (3.8-10.6) k/uL Plt Count (150-450) k/uL Lymphocytes # (1.0-4.8) k/uL Sodium (137-145) mmol/L BUN (9-20) mg/dL Glucose (74-99) mg/dL AST (17-59) U/L Troponin I 0.087 H* (0.000-0.034) ng/mL Urine Protein 2+ H (Negative) Urine Blood Small H (Negative) Urine Mucus Rare H (None) /hpf SARS-CoV-2 (PCR) Detected A (Not Detectd)
[2023-06-15 05:03] LABS: Glucose,Whole Blood 91 mg/dL (70-110)
[2023-06-15] MEDS: LEVOTHYROXINE 137 MCG TAB PO SCH (06:28)
[2023-06-15 06:48] LABS: HGB 13.4 gm/dL (13.0-17.5); MCH 32.9 pg (25.0-35.0); MCHC 33.5 g/dL (31.0-37.0); MCV 98.2 fL (80.0-100.0); Mean Platelet Volume 8.9; Platelet Count 116 k/uL (150-450); RBC 4.08 m/uL (4.30-5.90); RDW 13.6 % (11.5-15.5); WBC 2.8 k/uL (3.8-10.6)
[2023-06-15 07:39] LABS: Glucose,Whole Blood 96 mg/dL (70-110)
[2023-06-15] MEDS: INSULIN ASPART (NovoLOG) 100 UNIT/ML VIAL SQ SCH ×4 (07:55→20:34)
[2023-06-15 08:41] LABS: Chol/HDL Ratio 3.41 Ratio; LDL Cholesterol,Calculated 74.8 mg/dL (0.0-131.0)
[2023-06-15] MEDS: ASPIRIN 325 MG TAB PO SCH ×2 (08:42→08:43)
[2023-06-15] MEDS: DULoxetine HCL 60 MG CAPSULE.DR PO SCH (08:42)
[2023-06-15] MEDS: METOPROLOL TARTRATE 50 MG TAB PO SCH ×2 (08:42→20:34)
[2023-06-15] MEDS: amLODIPine 5 MG TAB PO SCH (08:42)
[2023-06-15] MEDS: APIXABAN 5 MG TAB PO SCH ×2 (08:43→20:34)
[2023-06-15] MEDS: LOSARTAN 25 MG TAB PO SCH (08:43)
[2023-06-15] MEDS ORDERED: ENOXAPARIN 40 MG/0.4 ML SYRINGE SQ SCH (09:00)
[2023-06-15] MEDS: azaTHIOprine 50 MG TAB PO SCH (09:30)
[2023-06-15] MEDS: prednisoLONE ACETATE 1% OPHTH DROPS 5 ML BTL LEFT EYE SCH ×2 (09:33→20:34)
[2023-06-15] MEDS: KETOROLAC 0.5% OPHTH DROPS 5 ML BTL LEFT EYE SCH ×2 (09:33→20:34)
[2023-06-15] MEDS: SODIUM CHLORIDE 0.9% 1,000 ML IV SCH (10:22)
[2023-06-15 12:15] LABS: Glucose,Whole Blood 129 mg/dL (70-110)
--- NOTE | 2023-06-15 12:24 | CA ---
Transthoracic Echo Report Name: Donte Castillo Age: 77 Gender: M : 1945 Exam Date: 06/15/2023 09:35 Exam Location: [facility] Ht (in): 72 Wt (lb): 215 Ordering Physician: Mehrdad Noel DO Attending/Referring Phys: [id number], Sadie Staff Internist Office Based Only Tavia Blancas [facility] Procedure CPT: Indications: elevTrop Cardiac Hx: Technical Quality: Technically difficult study Contrast 1: Definity Total Dose (mL): 6 Contrast 2: Total Dose (mL): MEASUREMENTS (Male / Female) Normal Values 2D ECHO LV Diastolic Diameter PLAX 4.7 cm 4.2 - 5.9 / 3.9 - 5.3 cm LV Systolic Diameter PLAX 3.7 cm IVS Diastolic Thickness 1.0 cm 0.6 - 1.0 / 0.6 - 0.9 cm LVPW Diastolic Thickness 1.0 cm 0.6 - 1.0 / 0.6 - 0.9 cm LV Relative Wall Thickness 0.4 Ascending Aorta Diameter 3.1 cm DOPPLER Mitral E Point Velocity 76.3 cm/s Mitral A Point Velocity 130.5 cm/s Mitral E to A Ratio 0.6 MV Deceleration Time 361.4 ms LV E' Lateral Velocity 5.4 cm/s Mitral E to LV E' Lateral Ratio 14.0 LV E' Septal Velocity 3.9 cm/s Mitral E to LV E' Septal Ratio 19.6 TR Peak Velocity 201.1 cm/s TR Peak Gradient 16.2 mmHg Right Atrial Pressure 8.0 mmHg Pulmonary Artery Systolic Pressu 24.2 mmHg Right Ventricular Systolic Press 24.2 mmHg FINDINGS Left Ventricle Left ventricular cavity size normal. Normal left ventricular wall motion. Left ventricular ejection fraction is estimated at 55-60 %. Right Ventricle Right Atrium Left Atrium Mitral Valve Mitral annular calcification. Aortic Valve Aortic valve sclerosis. Tricuspid Valve Trace tricuspid regurgitation. Pulmonic Valve Pericardium No pericardial effusion. Echo free space anterior to the right ventricle likely represents a fat pad. Aorta CONCLUSIONS Limited for elevated trops, PT is COVID+ Definity ECHO contrast used for improved visualization of the endocardial borders (inadequate visualization of two or more contiguous segments). Normal left ventricle size and systolic function Limited Doppler study with trace tricuspid regurgitation Previewed by: Dr. Bel Neri MD (Electronically Signed) Final Date: 15 June 2023 12:23
--- NOTE | 2023-06-15 15:24 | P.PN ---
Subjective Progress Note Date: 06/15/23 No new complaints today. BPs are 180s/110s Gen: awake, alert HEENT: normocephalic, atraumatic, good hearing acuity, moist mucous membranes Resp: good air exchange, breathing comfortably with no accessory muscle use CVS: good distal perfusion x 4, GI: soft, NTTP, ND : no SPT, no CVAT, luna catheter not present MSK: no pitting edema, no clubbing Neuro: non-focal, moving all extremities Psych: cooperative, euthymic mood Hospital Course: Patient is a 77-year-old male resident of an assisted living facility with a PMH of myasthenia gravis chronically wheelchair-bound, A. fib on Eliquis, type II D M, hypertension, hypothyroidism, hyperlipidemia, who presented to the emergency room with complaints of chest discomfort, generalized weakness and cough. Chest x-ray in the emergency room was unremarkable. EKG revealed sinus rhythm at 58 bpm with a left bundle branch block and left axis deviation as reviewed by me. Laboratory evaluation in was remarkable for troponin 0081, COVID positive, unrem arkable UA, WBC count 3.3, and platelet count 111. The patient's SpO2 in the emergency room was 97% on room air. Assessment: Elevated troponin, suspect type II MS in setting of COVID infection COVID-19 infection, patient not requiring supplemental oxygen at this time Leukopenia and thrombocytopenia, suspected due to ongoing infection Chronic conditions: myasthenia gravis, A. 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 Cardiac monitoring Continue with aspirin and statin Monitor CBC insulin sliding scale and blood glucose monitoring Continue with home medications once reconciled DVT prophylaxis: Eliquis The patient is admitted with an anticipated greater than 2 midnight stay for evaluation of elevated troponin CODE STATUS: Full Code Discussed with: Patient Anticipated discharge place: Home Objective - Vital Signs Vital signs: Vital Signs Temp 97.8 F 06/15/23 06:29 Pulse 50 L 06/15/23 13:34 Resp 16 06/15/23 13:34 BP 148/59 06/15/23 13:34 Pulse Ox 98 06/15/23 13:34 FiO2 Intake & Output 06/14/23 06/15/23 06/15/23 18:59 06:59 18:59 Weight 97.522 kg - Labs CBC & Chem 7: 06/15/23 05:39 06/14/23 13:32 Labs: Abnormal Lab Results - Last 24 Hours (Table) 06/14/23 06/14/23 06/14/23 Range/Units 14:08 15:50 17:45 WBC (3.8-10.6) k/uL RBC (4.30-5.90) m/uL Plt Count (150-450) k/uL POC Glucose (mg/dL) (70-110) mg/dL Troponin I 0.087 H* (0.000-0.034) ng/mL Urine Protein 2+ H (Negative) Urine Blood Small H (Negative) Urine Mucus Rare H (None) /hpf SARS-CoV-2 (PCR) Detected A (Not Detectd) 06/14/23 06/15/23 06/15/23 Range/Units 20:20 05:39 12:13 WBC 2.8 L (3.8-10.6) k/uL RBC 4.08 L (4.30-5.90) m/uL Plt Count 116 L (150-450) k/uL POC Glucose (mg/dL) 129 H (70-110) mg/dL Troponin I 0.083 H* (0.000-0.034) ng/mL Urine Protein (Negative) Urine Blood (Negative) Urine Mucus (None) /hpf SARS-CoV-2 (PCR) (Not Detectd)
[2023-06-15 17:06] LABS: Glucose,Whole Blood 114 mg/dL (70-110)
[2023-06-15 20:06] LABS: Glucose,Whole Blood 188 mg/dL (70-110)
[2023-06-15] MEDS ORDERED: ATORVASTATIN 80 MG TAB PO SCH (21:00)
[2023-06-15] MEDS ORDERED: ATORVASTATIN 40 MG TAB PO SCH (21:00)
--- NOTE | 2023-06-15 23:29 | CONS ---
CONSULTATION HISTORY OF PRESENT ILLNESS: Donte Castillo is a 77-year-old gentleman who came in to the hospital with multiple complaints of not feeling well, weak, tired, nausea, and he also had some cough with expectoration. He was tested to be positive for a COVID infection, but chest x-ray is clear without evidence of pneumonia. He has a known diagnosis of hypertension, diabetes, hyperlipidemia, and also paroxysmal atrial fibrillation and hypothyroidism, on replacement therapy. He takes Eliquis 5 mg b.i.d. at home. He is currently in a sinus rhythm, resting comfortably. He has underlying IVCD of LBBB type. He had a limited echocardiogram that was performed early this morning, which revealed preserved systolic function. He is resting comfortably without symptoms. There is a small fat pad, but no pericardial effusion, no significant pulmonary hypertension. The patient is resting comfortably at the time of my evaluation. I did not do a detailed exam in this COVID infection patient. However, I was asked to see him mainly because of elevated troponin level. On reviewing the chart, his troponin are flat at 0.08, all 3 values and this does not suggest any myocardial injury. Patient is comfortable and resting. I am recommending that we continue all his current home medications. This included atorvastatin and beta mazin. No other intervention is necessary. I am recommending 0.9 saline 75 mg/hour. Hypertension is under good control. No other intervention is necessary at this time. IMPRESSION: 1. History of paroxysmal atrial fibrillation, now in sinus rhythm. 2. COVID infection. 3. Hypertension. 4. Diabetes mellitus. 5. History of previous cardioversion. RECOMMENDATIONS: IV fluids. Resume home medications. Echo revealed preserved systolic function. I will see the patient as needed. MMODL / IJN: [id number] /
[2023-06-16] MEDS: SODIUM CHLORIDE 0.9% 1,000 ML IV SCH ×2 (00:36→10:53)
[2023-06-16 05:58] LABS: Glucose,Whole Blood 83 mg/dL (70-110)
[2023-06-16] MEDS: INSULIN ASPART (NovoLOG) 100 UNIT/ML VIAL SQ SCH ×3 (06:03→16:53)
[2023-06-16] MEDS: LEVOTHYROXINE 137 MCG TAB PO SCH (06:06)
[2023-06-16] MEDS: APIXABAN 5 MG TAB PO SCH (08:02)
[2023-06-16] MEDS: azaTHIOprine 50 MG TAB PO SCH (08:02)
[2023-06-16] MEDS: LOSARTAN 25 MG TAB PO SCH (08:02)
[2023-06-16] MEDS: amLODIPine 5 MG TAB PO SCH (08:02)
[2023-06-16] MEDS: DULoxetine HCL 60 MG CAPSULE.DR PO SCH (08:02)
[2023-06-16] MEDS: METOPROLOL TARTRATE 50 MG TAB PO SCH (08:02)
[2023-06-16] MEDS: KETOROLAC 0.5% OPHTH DROPS 5 ML BTL LEFT EYE SCH (08:03)
[2023-06-16] MEDS: prednisoLONE ACETATE 1% OPHTH DROPS 5 ML BTL LEFT EYE SCH (08:04)
[2023-06-16 08:23] VITALS: RESP 20; TEMP 97.4
[2023-06-16] MEDS ORDERED: ASPIRIN 81 MG PO SCH (09:00)
[2023-06-16 11:22] VITALS: BP 157/75; PULSE 51
[2023-06-16 11:45] LABS: Glucose,Whole Blood 110 mg/dL (70-110)
--- NOTE | 2023-06-16 13:32 | P.DS ---
Providers Date of admission: 06/14/23 17:21 Expected date of discharge: 06/16/23 Attending physician: Mir Cline MD Consults: 06/14/23 17:25 Consult Physician Urgent Consulting Provider: Bel Neri Consult Reason/Comments: nstemi Do you want consulting provider notified?: Yes Primary care physician: Real [facility] Course: Elevated troponin, suspect type II FL in setting of COVID infection COVID-19 infection, patient not requiring supplemental oxygen at this time Leukopenia and thrombocytopenia, suspected due to ongoing infection Chronic conditions: myasthenia gravis, A. fib, hypertension, type II DM, hypothyroidism, hyperlipidemia Hospital Course: Patient is a 77-year-old male resident of an assisted living facility with a PMH of myasthenia gravis chronically wheelchair-bound, A. fib on Eliquis, type II DM, hypertension, hypothyroidism, hyperlipidemia, who presented to the emergency room with complaints of chest discomfort, generalized weakness and cough. Chest x-ray in the emergency room was unremarkable. EKG revealed sinus rhythm at 58 bpm with a left bundle branch block and left axis deviation as reviewed by me. Laboratory evaluation in was remarkable for troponin 0081, COVID positive, unremarkable UA, WBC count 3.3, and platelet count 111. The patient's SpO2 in the emergency room was 97% on room air. Pt seen and evaluated by cardiology, and was cleared for discharge. Troponin elevation represented type II FL in setting of COVID. Pt was started on aspirin, and statin was continued. Pt will f/u with PCP and cardiology. I spent 38 minutes coordinating this discharge on 06/16 Gen: awake, alert HEENT: normocephalic, atraumatic, good hearing acuity, moist mucous membranes Resp: good air exchange, breathing comfortably with no accessory muscle use CVS: good distal perfusion x 4, GI: soft, NTTP, ND : no SPT, no CVAT, luna catheter not present MSK: no pitting edema, no clubbing Neuro: non-focal, moving all extremities Psych: cooperative, euthymic mood Patient Condition at Discharge: Good Plan - Discharge Summary Discharge Rx Participant: No New Discharge Prescriptions: New Aspirin 81 mg PO DAILY #30 tab Continue Metoprolol Tartrate [Lopressor] 50 mg PO BID DULoxetine HCL [Cymbalta] 60 mg PO DAILY Apixaban [Eliquis] 5 mg PO BID prednisoLONE ACETATE 1% OPHTH [Pred Forte 1%] 1 drop LEFT EYE BID Levothyroxine Sodium [Synthroid] 137 mcg PO DAILY azaTHIOprine [Imuran] 100 mg PO DAILY metFORMIN HCL 500 mg PO BID amLODIPine [Norvasc] 5 mg PO DAILY Losartan [Cozaar] 25 mg PO DAILY Glimepiride [Amaryl] 2 mg PO AC-BRKFST Ketorolac 0.5% Ophth Soln [Acular 0.5%] 1 drop LEFT EYE BID Cholecalciferol [Vitamin D3 (25 Mcg = 1000 Iu)] 25 mcg PO DAILY Rosuvastatin [Crestor] 20 mg PO HS Discharge Medication List Apixaban [Eliquis] 5 mg PO BID 06/14/23 [History] Cholecalciferol [Vitamin D3 (25 Mcg = 1000 Iu)] 25 mcg PO DAILY 06/14/23 [History] DULoxetine HCL [Cymbalta] 60 mg PO DAILY 06/14/23 [History] Glimepiride [Amaryl] 2 mg PO AC-BRKFST 06/14/23 [History] Ketorolac 0.5% Ophth Soln [Acular 0.5%] 1 drop LEFT EYE BID 06/14/23 [History] Levothyroxine Sodium [Synthroid] 137 mcg PO DAILY 06/14/23 [History] Losartan [Cozaar] 25 mg PO DAILY 06/14/23 [History] Metoprolol Tartrate [Lopressor] 50 mg PO BID 06/14/23 [History] Rosuvastatin [Crestor] 20 mg PO HS 06/14/23 [History] amLODIPine [Norvasc] 5 mg PO DAILY 06/14/23 [History] azaTHIOprine [Imuran] 100 mg PO DAILY 06/14/23 [History] metFORMIN HCL 500 mg PO BID 06/14/23 [History] prednisoLONE ACETATE 1% OPHTH [Pred Forte 1%] 1 drop LEFT EYE BID 06/14/23 [History] Aspirin 81 mg PO DAILY #30 tab 06/16/23 [Rx] Follow up Appointment(s)/Referral(s): Real Huerta MD [Primary Care Provider] - 06/23/23 2:15 pm Patient Instructions/Handouts: Heart Attack (DC), COVID-19 (Coronavirus Disease 2019) (DC) Discharge Disposition: HOME SELF-CARE
[2023-06-16 16:21] LABS: Glucose,Whole Blood 176 mg/dL (70-110)
== END 2023-06-16 17:22 | disposition home or self-care (01) | DRG 177 ==
LOC: EC 12:52 → 3SCARD 17:21
PROVIDERS: ADMIT Student in an Organized Health Care Education/Training Program; ATTEND Student in an Organized Health Care Education/Training Program
DX: U07.1 COVID-19 (principal); I21.A1 Myocardial infarction type 2; G70.00 Myasthenia gravis without (acute) exacerbation; D69.59 Other secondary thrombocytopenia; E11.9 Type 2 diabetes mellitus without complications; I48.0 Paroxysmal atrial fibrillation; D72.818 Other decreased white blood cell count; E03.9 Hypothyroidism, unspecified; I10 Essential (primary) hypertension; E78.5 Hyperlipidemia, unspecified; I44.7 Left bundle-branch block, unspecified; Z99.3 Dependence on wheelchair; Z79.01 Long term (current) use of anticoagulants; Z79.899 Other long term (current) drug therapy; Z82.49 Family history of ischemic heart disease and other diseases of the circulatory system; Z79.84 Long term (current) use of oral hypoglycemic drugs; Z79.624 Long term (current) use of inhibitors of nucleotide synthesis; Z79.890 Hormone replacement therapy; Z88.1 Allergy status to other antibiotic agents
CPT/HCPCS: 36415; 71046; 80053; 80061; 81001; 83605; 83735; 84100; 84443; 84484; 85025; 85027; 85610; 85730; 87636; 93005; 93308; 96360; 99291